=== PATIENT | male | born 1980 | race Caucasian/White ===

== ENCOUNTER 2023-10-13 09:36 | Emergency (ER) | payer OTHER, BC, SELFPAY ==
[2023-10-13 10:06] VITALS: BP 126/86; PULSE 60; RESP 20; TEMP 36.9; O2SAT 98; BMI 29.8
--- NOTE | 2023-10-13 10:21 | XR_ITS ---
Patient: ETHEL RITCHIE Facility:?[facility] Patient ID:?[id number] Site Patient ID:?[id number]. Site :?[id number] Study:?XRay-Extremity Right FINGER 2ND DIGIT-10/13/2023 10:59:12 AM Ordering Physician:BENITO Final Report: Indication: Injury Technique: Three views of the right 2nd digit Comparison: None Findings/impression : Nondisplaced tuft fracture of the 2nd digit. There is associated soft tissue swelling of the distal 2nd digit with some subcutaneous gas seen under the nail. No arthritic changes. No suspicious osseous lesions. Dictated by Bernabe Lezama MD @ 10/13/2023 11:03:10 AM Signed by:?Bernabe Lezama MD @10/13/2023 11:03:10 AM (Electronic Signature)
--- NOTE | 2023-10-13 10:23 | ED_ITS ---
HPI - General Adult General Chief complaint: Laceration/Wound Stated complaint: extreme finger lac Time Seen by Provider: 10/13/23 10:18 History of Present Illness HPI narrative: 43-year-old male had 150 lb door come down on his right index finger tip of the finger. He avulsed his nail. He is in a good amount of discomfort. [place]. He needs to be able to drive home. He has got a clearly avulsed nail bed. The patient has no other injuries noted. Other than his rigHand index finger tip. Patient has been largely healthy. He is not sure of his last tetanus shot. Last ate last night. Related Data Home Medications Medication Instructions Recorded Confirmed No Known Home Medications 08/27/22 10/13/23 Allergies Allergy/AdvReac Type Severity Reaction Status Date / Time No Known Allergies Allergy Unknown Unknown Verified 10/13/23 10:10 Review of Systems Status of ROS: Reports: 6 or more systems reviewed and unremarkable except as noted in History and below PFSH PFS Social History Smoking Status: Never smoker How often do you have a drink containing alcohol: never AUDIT-C Alcohol total score: 0 Non-prescribed substance use: denies use Little interest or pleasure in doing things: not at all Feeling down, depressed, or hopeless: not at all Exam Narrative: Exam Narrative: Objective: Vital signs are within normal limits He he is alert orient x3, his right index finger shows an avulsed nail bed and some bleeding around the nail bed. No other obvious lacerations noted. Is tender to touch. Good distal CMS. Const: Vital Signs, click to edit/add: Vital Signs - 24 hr 10/13/23 10:06 10/13/23 10:34 10/13/23 10:53 Temperature 98.4 F Pulse Rate [Pulse Oximeter] 60 483 H 55 L Respiratory Rate 20 16 Blood Pressure [Le ft Upper Arm] 126/86 112/63 Pulse Oximetry 98 96 99 Oxygen Delivery Me thod Room Air Course Vital Signs Vital signs: Initial Vital Signs Temperature 98.4 F 10/13/23 10:06 Temperature Source Temporal Artery Scan 10/13/23 10:06 Pulse Rate 60 10/13/23 10:06 Respiratory Rate 20 10/13/23 10:06 Blood Pressure 126/86 10/13/23 10:06 Blood Pressure Mean 99 10/13/23 10:06 Blood Pressure Position Sitting 10/13/23 10:06 Pulse Oximetry 98 10/13/23 10:06 Vital Signs Temperature 98.4 F 10/13/23 10:06 Pulse Rate 60 10/13/23 10:06 Respiratory Rate 20 10/13/23 10:06 Blood Pressure 126/86 10/13/23 10:06 Pulse Oximetry 98 10/13/23 10:06 Temperature 98.4 F 10/13/23 10:06 Pulse Rate 55 L 10/13/23 10:53 Respiratory Rate 16 10/13/23 10:53 Blood Pressure 112/63 10/13/23 10:34 Pulse Oximetry 99 10/13/23 10:53 Oxygen Delivery Method Room Air 10/13/23 10:53 Medications Administered Medications: Discontinued Medications Generic Name Dose Route Start Last Admin Trade Name Freq PRN Reason Stop Dose Admin Cephalexin HCl 500 mg 10/13/23 10:26 10/13/23 10:46 Cephalexin 500 Mg Capsule PO 10/13/23 10:27 500 mg ONCE ONE Administration Diphtheria/Tetanus/Acell Pertussis 0.5 ml 10/13/23 10:21 10/13/23 10:44 Tetanus/Diphth/Pertussis 0.5 Ml Syringe IM 10/13/23 10:22 0.5 ml .ONCE ONE Administration Sodium Chloride 1,000 mls @ 6,000 mls/hr 10/13/23 10:45 10/13/23 11:31 0.9 % Sodium Chloride 1000 Ml IV 10/13/23 10:54 Infused .Q10M PRIETO Infusion Ketorolac Tromethamine 10 mg 10/13/23 10:21 10/13/23 10:46 Ketorolac 10 Mg Tablet PO 10/13/23 10:22 10 mg ONCE ONE Administration Medical Decision Making MDM Narrative Medical decision making narrative: 43-year-old male with a right index finger nail avulsion and likely distal phalanx injury. Will get an x-ray, have soak the wound. Will update his Tdap, given Toradol 10 mg orally as he is really unable to take narcotics as he needs to drive home. Will review his x-ray and then who will need likely rehab placement of the nail to get the next nail to grow out normally and will document this separately. Will start him on antibiotics as well. Addendum: Patient felt a little lightheaded he was given IV fluid and laid flat he felt better. His heart rate was in the 50s and has improved. He has a distal tuft fracture of the index finger and little bit air under his nail on the right 2nd finger long finger so he must have injured that tip as well. Will give him antibiotics, will need to repair his finger please see additional note. Addendum 11:45 a.m.: Patient after sterile preparation and irrigation and spraying the avulsed nail a digital block was done with a tourniquet patient tolerated this well the nail was replaced into the nail bed and then tacked down with 4-0 simple interrupted sutures medial and laterally no other lacerations were noted. The patient did have a distal tuft fracture was given Keflex orally. Will give him Toradol Keflex and [facility] for home. Will set up an appointment for him to see hand surgeon through [facility] as he returns to [place] daily to work will do this within the next 3-7 days. Antibiotics pain control cautioned about sedative effect of the pain medication and watch for redness infection keep this covered for at least 48 hours until removing this the dressing. Discharge Plan Discharge Clinical Impression: Closed fracture of tuft of distal phalanx of finger, Avulsion of nail Patient Disposition: Home, Self-Care Condition: Improved Additional Instructions: Toradol and Keflex can be used, will also have [facility] for you which would be a pain medicine that can be sedative so do not drink or drive with that medicine. We will set up an appointment for you to see hands surgeon within the next 3-7 days. Keep this wound area covered for the next 2 days and then may soak it off in soapy water. May simply cover with a bandage as needed. You will lose the nail, and will have a surgical assessment of whether you need repair of the nail bed itself. Will set up to see a hand surgeon as mentioned above. Follow up appointment with [facility] is scheduled on 10/17 with a 9:45am check in time. Please bring your Worker's Compensation billing information. If you have any questions or need to reschedule, please call [phone]. [facility] [address] [place] [address] Activity Level: Light activity Discharge Diet: Regular Prescriptions: No Action No Known Home Medications Follow Up/Referrals: Provider,Not a Local [Referring] - Stand Alone Forms: Personal [employer] Info Instructions
[2023-10-13 10:34] VITALS: BP 112/63; PULSE 483; O2SAT 96
[2023-10-13] MEDS: TETANUS/DIPHTH/PERTUSSIS 0.5 ML SYRINGE IM (10:44)
[2023-10-13] MEDS: KETOROLAC 10 MG TABLET PO (10:46)
[2023-10-13] MEDS: cephALEXin 500 MG CAPSULE PO (10:46)
[2023-10-13] MEDS: 0.9 % SODIUM CHLORIDE 1000 ml 1,000 ML 6000 ML IV (10:46)
[2023-10-13 10:53] VITALS: PULSE 55; RESP 16; O2SAT 99
== END 2023-10-13 12:07 | disposition home or self-care (01) ==
PROVIDERS: Emergency Provider Family Medicine; PCP Family Medicine
DX: S61.310A Laceration without foreign body of right index finger with damage to nail, initial encounter (principal); S62.660A Nondisplaced fracture of distal phalanx of right index finger, initial encounter for closed fracture
CPT/HCPCS: 11730; 73140; 90471; 90715; 99283; 99284; A9270; J7030

== ENCOUNTER 2024-04-21 17:33 | Outpatient (CLI) | payer BC, SELFPAY ==
--- NOTE | 2024-04-21 17:30 | CRLHL7_ITS ---
For Patients: As a result of the 21st Century Cures Act, medical imaging exams and procedure reports are released immediately into your electronic medical record. You may view this report before your referring provider. If you have questions, please contact your health care provider. CLINICAL INDICATION: Right knee pain. COMPARISON STUDIES: Radiographs from 04/13/2024. TECHNICAL: Noncontrast MRI of the right knee. 1.5 valerio MRI scanner. Axial, sagittal and coronal T1, PD, PD FS and T2 FS images. FINDINGS: MEDIAL COMPARTMENT: Medial Meniscus: Mild intrameniscal degeneration posterior horn of the medial meniscus without meniscal tear. Articular Cartilage: Mild heterogeneity of the central medial femoral condyle articular cartilage suggesting mild softening. Medial tibial plateau articular cartilage maintained. LATERAL COMPARTMENT: Lateral Meniscus: Intact. Articular Cartilage: Heterogeneity of the lateral tibial plateau articular cartilage posteriorly suggesting mild softening. Lateral femoral condyle articular cartilage is maintained. PATELLOFEMORAL COMPARTMENT: Articular Cartilage: Subchondral bone marrow edema underlying the medial patellar facet and likely relates to overlying grade 4 cartilage fissuring with cartilage fraying and softening present. Trochlear articular cartilage is maintained. LIGAMENTS: Anterior Cruciate Ligament: Intact. Posterior Cruciate Ligament: Intact. MEDIAL COLLATERAL LIGAMENT AND POSTEROMEDIAL CORNER COMPLEX: Medial Collateral Ligament: Intact. Medial Head of the Gastrocnemius and Semimembranosus Tendons: Normal. LATERAL COLLATERAL LIGAMENT COMPLEX AND POSTEROLATERAL CORNER COMPLEX: Fibular Collateral Ligament: Normal. Distal Biceps Femoris Tendon Complex: Normal. Iliotibial Band: The iliotibial band appears thickened at the distal femoral level as seen on axial T1 image number 10 of series 4. There is mild underlying edema on axial PD fat-sat image number 12 of series 3. Popliteus Tendon: Normal. Posterolateral Corner Capsule: Normal. EXTENSOR MECHANISM: Distal Quadriceps Tendon: Normal. Patellar Tendon: Normal. Medial Patellar Retinaculum and Medial Patellofemoral Ligament: Normal. Lateral Patellar Retinaculum: Normal. Normal patellar alignment. Borderline mild patella shani. Normal trochlear depth. Normal lateral trochlear inclination. JOINT SPACE AND CAPSULE: No significant joint effusion or synovitis. No joint bodies. BONES AND SOFT TISSUES: No fracture or avascular necrosis.No significant popliteal cyst.No mass. IMPRESSION: 1. Subchondral bone marrow edema involving the medial patellar facet relates to overlying grade 4 chondromalacia. 2. Mild heterogeneity of the central medial femoral condyle and posterolateral tibial plateau articular cartilage compatible with mild cartilage softening. 3. No meniscal tear. 4. Borderline mild patella shani. 5. Slight edema underlying a mildly thickened IT band. Dictated by Cortes Coleman MD @ 04/24/2024 9:30:35 AM (Electronically Signed)
== END 2024-04-21 17:34 | disposition home or self-care (01) ==
PROVIDERS: PCP Family Medicine; Visit Provider Emergency Medicine
DX: M25.561 Pain in right knee (principal); M94.261 Chondromalacia, right knee
CPT/HCPCS: 73721